=== PATIENT | male | born 1960 | race African-American/Black ===

== ENCOUNTER 2019-03-03 04:15 | Emergency (ER) | payer MEDICAID ==
[~2019-03-03] VITALS: Ht 195.6 cm; Wt 81.0 kg
[2019-03-03 06:52] VITALS: BP 100/69
== END 2019-03-03 07:00 | disposition home or self-care (01) ==
LOC: ER 04:15
DX: S46.912A Strain of unspecified muscle, fascia and tendon at shoulder and upper arm level, left arm, initial encounter (principal); F17.200 Nicotine dependence, unspecified, uncomplicated; V43.52XA Car driver injured in collision with other type car in traffic accident, initial encounter; Y93.9 Activity, unspecified; Y92.410 Unspecified street and highway as the place of occurrence of the external cause; Z98.890 Other specified postprocedural states
CPT/HCPCS: 99281

== ENCOUNTER 2021-06-29 08:29 | Emergency (ER) | payer MEDICAID ==
[~2021-06-29] VITALS: Ht 193 cm; Wt 78.0 kg
[2021-06-29 08:31] VITALS: BP 109/75
[2021-06-29] MEDS ORDERED: IBUPROFEN 600MG TABLET PO STA (08:46)
== END 2021-06-29 10:01 | disposition left against medical advice (07) ==
LOC: ER 08:29
DX: R10.30 Lower abdominal pain, unspecified (principal)
CPT/HCPCS: 99282

== ENCOUNTER 2025-02-25 03:15 | Emergency (ER) | payer MEDICAID, MEDICARE ==
[~2025-02-25] VITALS: Ht 193 cm; Wt 75.0 kg
[2025-02-25 03:28] VITALS: O2SAT 98
[2025-02-25 04:17] LABS: BASOPHILS % 1.0 % (0.0-2.0); EOSINOPHILS % 5.6 % (0.0-5.0); HEMATOCRIT. 42.1 % (42.0-52.0); HEMOGLOBIN. 13.9 g/dL (14.0-18.0); LYMPHOCYTES % 30.8 % (20.0-50.0); MEAN PLATELET VOLUME 7.2 fl (7.4-10.4); MONOCYTES % 12.7 % (2.0-8.0); NEUTROPHILS % 49.9 % (40.0-76.0); PLATELET 291 x1000/uL (130-400); RED BLOOD CELL COUNT 4.49 mill/uL (4.7-6.1); RED CELL DISTRIBUTION WIDTH 13.8 % (11.6-14.6)
[2025-02-25 04:30] LABS: CREATININE 0.9 mg/dL (0.6-1.3); UREA NITROGEN BLOOD 12 mg/dL (9-23)
[2025-02-25 04:49] LABS: CLARITY URINE CLEAR (CLEAR); COLOR URINE YELLOW (YELLOW); GLUCOSE URINE NEGATIVE (NEGATIVE); KETONES URINE NEGATIVE (NEGATIVE); LEUKOCYTE ESTERASE URINE NEGATIVE (NEGATIVE); NITRITE URINE NEGATIVE (NEGATIVE); OCCULT BLOOD URINE NEGATIVE (NEGATIVE); PH URINE 6.0 (4.5-8.0); PROTEIN URINE NEGATIVE (NEGATIVE); SPECIFIC GRAVITY URINE 1.016 (1.005-1.030); UROBILINOGEN URINE 1.0 E.U./dL (0.2-1.0)
[2025-02-25] MEDS: IBUPROFEN 600MG TABLET PO ONE (06:10)
[2025-02-25] MEDS: ONDANSETRON 4MG ODT PO ONE (06:10)
[2025-02-25 06:36] LABS: ASPARTATE AMINOTRANSFERASE 26 IU/L (<34); BILIRUBIN DIRECT 0.2 mg/dL (<=3.0); BILIRUBIN TOTAL 0.5 mg/dL (0.1-1.0)
[2025-02-25 06:37] LABS: PROTEIN TOTAL 7.0 g/dL (6.0-8.3)
[2025-02-25] MEDS ORDERED: IBUP-1455 MT (06:40)
[2025-02-25] MEDS ORDERED: METH-653 MT (06:40)
[2025-02-25 06:45] VITALS: BP 104/70; PULSE 66; RESP 12; TEMP 36.9; O2SAT 99
== END 2025-02-25 06:51 | disposition home or self-care (01) ==
LOC: ER 03:15
DX: F17.200 Nicotine dependence, unspecified, uncomplicated (principal); S39.011A Strain of muscle, fascia and tendon of abdomen, initial encounter; Z98.890 Other specified postprocedural states
CPT/HCPCS: 99284; 74176; 80076; 80048; 81003; 83690; 85025; 36415; 93005; Q0162